=== PATIENT | male | born 1990 | race Caucasian/White ===

== ENCOUNTER 2017-09-20 14:18 | Emergency (ER) | payer SELFPAY ==
[~2017-09-20] VITALS: Ht 180.3 cm; Wt 97.1 kg
[2017-09-20] MEDS ORDERED: DIPHENHYDRAMINE HCL 12.5 MG/5 ML UDC PO ONE (14:30)
[2017-09-20] MEDS ORDERED: methylPREDNISolone SOD SUCC/PF 62.5 MG/ML VIAL IM ONE (14:30)
[2017-09-20] MEDS ORDERED: FAMOTIDINE 20 MG TABLET PO ONE (14:30)
[2017-09-20 14:31] VITALS: BP_SYST 127
[2017-09-20] MEDS ORDERED: LORazepam 1 MG TABLET PO ONE (15:00)
[2017-09-20 16:01] VITALS: BP_SYST 120
== END 2017-09-20 15:59 | disposition home or self-care (01) ==
LOC: SED 14:18
DX: F32.9 Major depressive disorder, single episode, unspecified (principal); R21 Rash and other nonspecific skin eruption
CPT/HCPCS: 71045; 93005; 99284

== ENCOUNTER 2020-09-10 07:29 | Emergency (ER) | payer BC ==
[~2020-09-10] VITALS: Ht 180.3 cm; Wt 112.9 kg
[2020-09-10 07:35] VITALS: BP_SYST 138
[2020-09-10] MEDS ORDERED: BACITRACIN 1 GM OINT TP ONE (08:00)
[2020-09-10] MEDS ORDERED: LIDOCAINE 1% 10 MG/ML, 20 ML MDV INJ ONE (08:00)
[2020-09-10] MEDS ORDERED: DIPH-TET-PERTUS Vaccine 0.5 ML VIAL (ADACEL) I.M. ONE (08:00)
[2020-09-10 08:28] LABS: BASOPHILS # (AUTO) 0.1 K/uL (0.0-0.2); BASOPHILS % (AUTO) 0.4 % (0.0-2.0); EOSINOPHILS # (AUTO) 0.2 K/uL (0.0-0.4); EOSINOPHILS % (AUTO) 1.2 % (0.0-4.0); HEMATOCRIT 42.7 % (36-54); HEMOGLOBIN 14.8 g/dL (14.0-18.0); LYMPHOCYTES # (AUTO) 1.8 K/uL (1.0-5.5); LYMPHOCYTES % (AUTO) 11.3 % (20.5-51.5); MEAN CORPUSCULAR HEMOGLOBIN 30 pg (27-31); MEAN CORPUSCULAR HGB CONC 35 % (32-36); MEAN CORPUSCULAR VOLUME 86 fL (79.0-98.0); MONOCYTES # (AUTO) 1.2 K/uL (0.0-1.0); NEUTROPHILS # (AUTO) 12.4 K/uL (1.8-7.7); NEUTROPHILS % (AUTO) 79.1 % (40.0-70.0); PLATELET COUNT (AUTO) 250 K/uL (130-430); RED BLOOD CELL COUNT(AUTO) 4.96 MIL/uL (4.2-6.2); RED CELL DISTRIBUTION WIDTH 13.1 % (9.0-15.0); WHITE BLOOD COUNT (AUTO) 15.7 K/uL (4.8-10.8)
[2020-09-10 08:35] LABS: CREATININE 1.33 mg/dL (0.55-1.30)
[2020-09-10] MEDS ORDERED: IBUP-1971 PO (08:39)
[2020-09-10] MEDS ORDERED: CLIN300C12 PO (08:39)
[2020-09-10 08:41] LABS: ALBUMIN 3.8 g/dL (3.4-4.8); TOTAL BILIRUBIN 2.2 mg/dL (0.0-1.0)
[2020-09-10 08:57] LABS: C-REACTIVE PROTEIN QUANT 12.7 mg/dL (0-0.5)
[2020-09-10] MEDS ORDERED: IBUPROFEN 800 MG TABLET PO ONE (09:00)
[2020-09-10 09:05] VITALS: BP_SYST 138
== END 2020-09-10 09:06 | disposition home or self-care (01) ==
LOC: SED 07:29
DX: L02.212 Cutaneous abscess of back [any part, except buttock and flank] (principal); Z79.899 Other long term (current) drug therapy
CPT/HCPCS: 10061; 36415; 80053; 83605; 85025; 86140; 90471; 90715; 99284; J2001

== ENCOUNTER 2020-09-12 11:32 | Emergency (ER) | payer BC ==
[~2020-09-12] VITALS: Ht 180.3 cm; Wt 95.7 kg
[~2020-09-12 11:32] MED LIST: CLIN300C12 PO; IBUP-1971 PO
[2020-09-12 11:39] VITALS: BP_SYST 125
[2020-09-12] MEDS ORDERED: BACITRACIN 1 GM OINT TP ONE (11:45)
[2020-09-12 11:52] VITALS: BP_SYST 125
== END 2020-09-12 11:53 | disposition home or self-care (01) ==
LOC: SED 11:40
DX: L02.212 Cutaneous abscess of back [any part, except buttock and flank] (principal); Z48.00 Encounter for change or removal of nonsurgical wound dressing; Z79.899 Other long term (current) drug therapy
CPT/HCPCS: 99282

== ENCOUNTER 2020-09-14 13:45 | Emergency (ER) | payer BC ==
[~2020-09-14] VITALS: Ht 180.3 cm; Wt 112.9 kg
[2020-09-14 14:30] VITALS: BP_SYST 107
--- NOTE | 2020-09-14 15:46 | NUR ---
Patient to ER bed 03 to gown for evaluation. Side rails up. Report given to LU Franco
--- NOTE | 2020-09-14 15:54 | NUR ---
VISITED ER FOR INGROWN TOENAIL ON RIGHT HALLUX. COMPLAINING OF 9/10 PAIN.NO OTHER COMPLAINTS AT THIS TIME
--- NOTE | 2020-09-14 16:27 | NUR ---
ER Dr. Cruz at bedside examining patient.
[2020-09-14] MEDS ORDERED: LIDOCAINE 1% 10 MG/ML, 20 ML MDV INJ ONE ×2 (16:45)
[2020-09-14 18:45] VITALS: BP_SYST 138
--- NOTE | 2020-09-14 18:45 | NUR ---
Patient given written and verbal discharge instructions and verbalizes understanding. ER MD discussed with patient the results and treatment provided. Patient in stable condition. ID arm band removed. Patient educated on pain management and to follow up with PMD. Pain Scale 0/10. Opportunity for questions provided and answered. Medication side effect fact sheet provided.
== END 2020-09-14 18:45 | disposition home or self-care (01) ==
LOC: SED 13:45
DX: L60.0 Ingrowing nail (principal); Z79.899 Other long term (current) drug therapy
CPT/HCPCS: 11730; 99284; J2001

== ENCOUNTER 2021-01-12 04:32 | Emergency (ER) | payer BC ==
[~2021-01-12] VITALS: Ht 180.3 cm; Wt 113.4 kg
[2021-01-12 04:47] VITALS: BP_SYST 128
--- NOTE | 2021-01-12 05:30 | NUR ---
Patient to ER bed 3 to gown for evaluation. Side rails up.
--- NOTE | 2021-01-12 06:08 | NUR ---
PT ARRIVED TO ER FOR COMPLAINTS OF INGROWN TOE NAIL TO RIGHT FOOT, 1ST DIGIT. IN AUGUST PT CAME IN FOR SAME THING, AND IT WAS REMOVED. NOW ITS BACK. 09/30 PAIN. RED AND HOT TO TOUCH. A&OX4. NO OTHER COMPLAINTS AT THIS TIME
--- NOTE | 2021-01-12 06:10 | NUR ---
DR. BOSS AT BEDSIDE FOR EVALUATION.
[2021-01-12] MEDS ORDERED: LIDOCAINE 1%, 20 ML MDV 20 ML ONE (06:17)
--- NOTE | 2021-01-12 06:55 | NUR ---
DR BOSS IN THE ROOM DOING PROCEDURE
--- NOTE | 2021-01-12 07:14 | NUR ---
REPORT GIVEN TO MARY LEIGH
[2021-01-12] MEDS ORDERED: CEPH250C PO ×2 (07:15→07:16)
[2021-01-12] MEDS ORDERED: IBUP-1971 PO (07:16)
[2021-01-12 07:40] VITALS: BP_SYST 129
--- NOTE | 2021-01-12 07:40 | NUR ---
Patient given written and verbal discharge instructions and verbalizes understanding. ER MD discussed with patient the results and treatment provided. Patient in stable condition. ID arm band removed. Rx of keflex,,,,,,,,,,,,ibu given. Patient educated on pain management and to follow up with PMD. Pain Scale . Opportunity for questions provided and answered. Medication side effect fact sheet provided.
== END 2021-01-12 07:40 | disposition home or self-care (01) ==
LOC: SED 04:32
DX: L03.031 Cellulitis of right toe (principal); L60.0 Ingrowing nail; Z79.899 Other long term (current) drug therapy
CPT/HCPCS: 11730; 99284; J2001